=== PATIENT | female | born 1955 | race Caucasian/White ===

== ENCOUNTER 2024-12-21 06:04 | Day surgery (SDC) | payer MEDICARE, OTHER, SELFPAY ==
[2024-12-10 09:20] VITALS: BMI 36.5
[2024-12-21] VITALS (15 sets, daily range): BP systolic 119–172; BP diastolic 49–98; PULSE 67–111; RESP 12–24; TEMP 35.6–36.6; O2SAT 92–100; BMI 36.5
--- NOTE | 2024-12-21 | DI.RAD.S_ITS ---
PROCEDURE: XR HIP W PEL IF DONE LT 2V INDICATIONS: LT TOTAL HIP TECHNIQUE: AP pelvis and lateral view of the hip acquired. [facility]24, 8:48. FINDINGS: Bones: Patient is status post left hip arthroplasty, with hardware components in expected positions. The hip joint appears congruent. The visualized bony structures appear intact. Soft tissues: Overlying postoperative changes are noted. No suspicious soft tissue densities. IMPRESSION: Expected post-operative appearance of a hip arthroplasty. Dictated by: Taye Diaz M.D. on 12/21/2024 at 12:10 Approved by: Taye Diaz M.D. on 12/21/2024 at 12:11
--- NOTE | 2024-12-21 06:00 | DI.RAD.S_ITS ---
PROCEDURE: XR HIP W PEL IF DONE LT 2V INDICATIONS: VALERIE TECHNIQUE: Fluoroscopic guidance utilized for a left hip arthroplasty COMPARISON: None. FINDINGS: Fluoroscopic images submitted for a left hip arthroplasty. Please see operative note for further discussion. IMPRESSION: Fluoroscopic guidance. Dictated by: Taye Diaz M.D. on 12/21/2024 at 15:56 Approved by: Taye Diaz M.D. on 12/21/2024 at 15:56
[2024-12-21] MEDS: ACETAMINOPHEN 325 MG TABLET 975 MG PO (06:50)
[2024-12-21] MEDS: MELOXICAM 7.5 MG TABLET PO (06:51)
[2024-12-21] MEDS: LACTATED RINGERS 1,000 ML 42 ML IV ×2 (07:26→09:10)
--- NOTE | 2024-12-21 07:42 | PM.PREOP ---
Pre-operative Note Interval Note History & Physical reviewed/Exam performed by Physician: Yes Changes to H&P: No
[2024-12-21] MEDS: CEFAZOLIN 2 GM/100 ML PREMIX 100 ML IV (07:57)
[2024-12-21] MEDS: TRANEXAMIC ACID 1,000 MG VIAL 1000 MG INJ ×2 (08:11→09:08)
--- NOTE | 2024-12-21 08:49 | SUR.OPER ---
Supine on padded [place] table with bilateral legs secured in padded positioning boots and suspended in positioning spars, operative leg in traction per surgeon. Head on one pillow. Arm on non-operative side secured on padded armboard <90 degrees abduction. Arm on operative side padded and resting across chest then secured with tape over sheet. Padded perineal post in place per surgeon.
[2024-12-21] MEDS: ROPIVACAINE/EPI/CLONIDINE/KET 50 ML SYRINGE INJ (08:58)
--- NOTE | 2024-12-21 09:51 | P.OP_ITS ---
Operative Date/Time/Diagnoses Date of procedure: 12/21/24 Pre-op diagnosis: Left hip osteoarthritis Post-op diagnosis: same Procedure & Clinicians Procedure: Left total hip arthroplasty Same procedure as scheduled: Yes Surgeon: Joseph Mancera Waste Duster: Mally Tian Anesthesia Type: Spinal, Sedation and Local Operative Notes Estimated Blood Loss (mL): 350 Procedure in detail: Left Uncemented Direct Anterior Depuy Total Hip Arthroplasty: Implants: * [place] Bimentum size 55 cup? * Actis femoral stem size 5 high offset? * 28 mm +8.5 ceramic femoral head? * dual mobility liner Procedure Summary: This 69-year-old female patient has a history of a spinal fusion and bilateral hip arthritis. She intends to eventually returned for a contralateral right total hip arthroplasty. Intraoperatively today she had a very large pannus which I utilized an obstetric pannus retractor to move out of overlying the surgical field. Because of her spinal fusion I used a dual mobility articulation. I used a mono block cup to maximize the head size and avoid the use of a modular liner which could result in metal ion release. She had very friable fat tissue and in anticipation that her bone quality would likewise not be robust I performed a conjoined tendon release to elevate her femur to minimize the risk of fracture during broaching. I initially had planned to use a standard offset and a +5 head and ended up using a high offset with a +8.5 head. I was unable to dislocate the hip with maximum external rotation or a 45 degree drop test after implantation of definitive components Procedure in Detail: This patient was seen preoperatively and evaluated for hip pain which was refractory to numerous nonoperative treatment modalities. Their hip pain correlated with radiographic changes demonstrating significant degeneration in the hip joint. The risks and benefits of continued nonoperative management versus operative management were discussed at length and all of the patient?s questions were answered. Additional educational materials providing further details beyond our discussion in clinic were provided via a publicly available patient education video which included the incidence of medical complications associated with total hip arthroplasty, reasons for revision following total hip arthroplasty, and patient satisfaction rates following total hip arthroplasty. That video can be accessed at [email or web address] . With this understanding of the risks inherent to the procedure, the patient elected to move forward with operative management. Following preoperative optimization, the patient was scheduled for surgery. The patient was met in the preoperative holding area the day of the procedure and all questions were answered. The patient?s nares were swabbed with betadine in order to decolonize them from MRSA. Informed consent was signed and the left limb was marked with indelible ink.? The patient was brought back to the operating room where anesthesia was induced. The patient was transferred to the [place] table and all bony prominences were padded. The operative site was prepped and draped in the usual sterile fashion. Prior to incision, tranexamic acid and cefazolin were administered. Operative templating images were displayed demonstrating the anticipated implant sizes and correct operative extremity. A timeout procedure was performed verifying the patient?s identity, medical comorbidities, allergies, relevant medications, anesthesia type and the surgical plan. All present were in agreement. The assistance of a physician assistant professor of radiology was required for positioning, room setup, soft tissue retraction and wound closure. Without this assistance, the procedure would have been significantly more challenging and time consuming.?? A direct anterior approach to the hip was utilized. This was performed with a longitudinal incision through a Heuter interval. The incision was planned 2 cm distal and 2 cm lateral to the ASIS extending towards the lateral patella, in line with the muscle body of the TFL. Following incision, the subcutaneous tissue was dissected while taking care to avoid injury to the lateral femoral cutaneous nerve. The fascia overlying the TFL was identified by dissecting off the overlying fat and identifying perforating vessels to the TFL. The TFL fascia was incised and dissected away from the medial border of the TFL. A cobra retractor was placed over the superior femoral neck between the abductors and the hip capsule and used to reflect the TFL laterally. A Pinnacle self-retainer was then placed in the distal aspect of the wound between the TFL and the rectus femoris. This was tensioned to open up the direct anterior interval and the lateral circumflex vessels were identified and coagulated using electrocautery. The floor of the TFL fascia was incised, exposing the pericapsular fat overlying the hip capsule. A second cobra retractor was placed on the inferior femoral neck. A double-bent soft tissue retractor was placed on the anterior wall of the acetabulum and used to tension the reflected head of rectus femoris, which was then released in order to limit soft tissue tension. A capsulotomy was made in the midline of the anterior hip capsule in line with the femoral neck ending at the vastus tubercle. The double-bent retractor was removed in order to limit the amount of time that a soft tissue retractor remained on the anterior wall and protect the femoral nerve. Tag stitches were placed in the superior and inferior leaflets of the hip capsule. An Vlad soft tissue retractor was introduced over the tag stitches and tensioned in the interval between the rectus femoris and the TFL in order to retract and protect those muscles. The cobra retractors were replaced intracapsularly, with one over the superior neck in the pocket created by the base of the greater trochanter and the other on the femoral head. The capsulotomy was extended laterally to the base of the greater trochanter and medially to the lesser trochanter. This required externally rotating the hip. Once the lesser trochanter had been identified, a neck cut was planned according to measurements from preoperative templating. A ruler was cut at the length measured between the superior aspect of the lesser trochanter and the collar of the prosthesis. This line was extended towards the inferior aspect of the lateral cobra retractor to plan a cut which would leave minimal residual femoral neck laterally. The neck was cut at 60 degrees of external rotation along that line. A second cut was performed to remove a large napkin ring and facilitate head extraction. The napkin ring cut and femoral head were removed.?? A broad anterior wall retractor was placed between the labrum and the anterior capsule so that the anterior capsule would prevent capturing and pinching the femoral nerve anteriorly. An additional retractor was placed on the posterior wall. External rotation and traction were applied through the [place] table so that the cut surface of the femoral neck would not restrict access to the acetabulum. The labrum was excised sharply and the pulvinar was excised with electrocautery to limit bleeding from branches of the obturator artery. Acetabular reamers were selected based on preoperative templating and measurements of the excised femoral head. These were introduced into the acetabulum. Fluoroscopy was utilized to replicate a standing AP pelvis radiograph by centering over the pelvis, rotating until there was appropriate symmetry between the obturator foramen, and introducing caudal tilt to match the position of the pubic symphysis relative to the sacrococcygeal junction according to the patient?s anatomy. Fluoroscopy was utilized to ensure appropriate reaming depth. Once satisfied with the reaming depth corresponding to the preoperative template and the pinch fit between the columns, an appropriate sized acetabular cup was selected which would provide 1 mm of press-fit. This cup was introduced and manipulated until appropriate abduction and anteversion angles were obtained with careful attention to appropriate abduction and anteversion angles as evaluated by the position of the cup relative to the anterior and posterior junior of the acetabulum and the AP fluoroscopy which recreated the patient?s standing radiograph. The cup was impacted into place. Peripheral osteophytes were removed. The acetabular liner was then placed with care to ensure locking of the locking mechanism.? Attention was then turned to the femur. All retractors were removed, traction was released, a retractor was placed in the interval between the hip capsule and the gluteus minimus, and the hip was externally rotated to 90 degrees. Traction was applied through the [place] table to tension the lateral capsule and this was released using electrocautery. Traction was released and a [place] hook was placed posteriorly around the proximal femur at the level of the vastus ridge. The table height was lowered in order to restrict the tension on the anterior structures during hip hyperextension to limit the risk of femoral nerve palsy. With traction off and the hip at 90 degrees of external rotation, the hip was hyperextended and adducted while manually elevating the femur away from the acetabulum with the [place] hook to ensure it would not be caught behind the greater trochanter. An asymmetric retractor was placed over the calcar and a broad double-pronged retractor was placed over the greater trochanter. The tag stitch capturing the lateral leaflet of the capsule was moved to the medial side, leaving the conjoined and piriformis tendons isolated in the face of the greater trochanter. The hip was externally rotated and elevated. A release of the conjoined tendon was utilized in order to obtain adequate exposure for broaching. The canal was opened with an opening broach and a rasp was used to remove cancellous bone. A rongeur was used to remove the residual lateral bone at the base of the greater trochanter to avoid placing the stem in varus. The femur was then broached to the appropriate sized stem yielding good rotational fit and fill of the canal as well as appropriate version of the stem trial. Neck and head trials were placed, all retractors were removed and the hip was returned to neutral abduction and extension. I then reduced the hip. Initial trialing was performed with a size 5 broach, a standard offset neck and a +5 head. I initially manually externally rotated the hip and found that it immediately dislocated. I therefore upsized to a +8.5 head. This resolved the instability. I then locked the hip in 45 degrees of external rotation and dropped it to the floor with traction off which demonstrated no instability. An AP pelvis fluoroscopic image matching the preoperative standing radiograph with both lesser trochanters visible and both hips in 40 degrees of external rotation demonstrated appropriate leg lengths but appeared to have diminished offset as compared to the other side. AP and lateral hip fluoroscopic images were obtained to evaluate the broach size which demonstrated appropriate canal fill. The hip was dislocated and I returned to the broaching position. Based on my evaluation during initial trialing I planned to transitioned to a high offset stem. I did not repeat the trialing process as it had been stable with a standard offset stem. I therefore returned to the broaching position. The definitive stem was placed and the trunnion was cleaned and dried. I placed a ceramic head onto the trunnion and impacted it into place on the Minor taper.?? All retractors were removed and the hip was reduced. A dilute mixture of betadine and peroxide was used to bathe the soft tissues during final fluoroscopic assessment. Appropriate component positioning was confirmed on an AP pelvis radiograph with the operative and nonoperative legs in 40 degrees of external rotation, evaluating leg length and offset. Appropriate stem fill was evaluated on AP and lateral hip radiographs. No fractures were identified on these radiographs. There was no hip instability with maximum (115?) external rotation as well as a 45 degree drop test. The hip was copiously irrigated with pulse lavage. The capsule was closed with absorbable interrupted suture. The TFL fascia was closed with barbed suture while carefully protecting the lateral femoral cutaneous nerve from entrapment. A mixture of Ropivacaine, Epinephrine, Clonidine and Toradol was infiltrated th roughout the soft tissues. The skin was closed with 2-0 and 3-0 sutures. Surgical glue was applied and a soft dressing was placed.??The sponge, instrument and needle counts were reported as being correct at the end of the case.??No obvious complications occurred. The patient was transferred from the [place] table back to a stretcher. The patient emerged from anesthesia without difficulty and was taken to the PACU in a stable condition.? Plan for aftercare: * I will utilize anterior hip precautions for her as she has a higher risk for dislocation because of her lumbar fusion * Weightbearing as tolerated * Aspirin 81 twice per day for DVT prophylaxis * Anticipate discharge home today or tomorrow * Patient uses marijuana daily. I have ordered respiratory therapy as well as Marinol during her admission. After discharge home have counseled her to utilize smokeless formulations of marijuana * Multimodal pain regimen with no IV opioids ordered * Apply ice machine to operative hip. Ensure that sufficient ice is in the chamber for the pad to remain cold * Follow up at [facility] in [facility] weeks * Detailed postoperative instructions available at [email or web address]
[2024-12-21] MEDS: ONDANSETRON 4 MG/2 ML INJ IV (10:28)
[2024-12-21] MEDS: METOCLOPRAMIDE 10 MG/2 ML INJ IV (10:44)
[2024-12-21] MEDS: hydrOXYzine 50 MG/ML INJ 25 MG IM (10:44)
[2024-12-21] MEDS: ACETAMINOPHEN 325 MG TABLET 650 MG PO (11:43)
[2024-12-21] MEDS: droNABinol 2.5 MG CAPSULE PO ×2 (11:51→15:17)
[2024-12-21] MEDS: OXYCODONE IR 10 MG TABLET PO ×2 (11:51→15:15)
[2024-12-21] MEDS: LACTATED RINGERS 1,000 ML 100 ML IV (11:53)
--- NOTE | 2024-12-21 13:52 | PT.IIE ---
Current Diagnoses Unilateral primary osteoarthritis, left hip (12/21/24) Surgery Performed Operation Date: 12/21/24 07:45 Actual Procedures p Total Hip Arthroplasty/Anterior Approach(Left) - Joseph Mancera MD Surgical History (Last Updated 12/10/24 @ 10:19 by Hue George, RN) History of carpal tunnel surgery of left wrist History of carpal tunnel surgery of right wrist History of hysterectomy History of lumbar spinal fusion (2011) History of total left knee replacement History of total right knee replacement Hx of removal of cyst Medical History (Last Updated 12/10/24 @ 10:37 by Hue George RN) Anesthesia complication Anxiety Asthma BCC (basal cell carcinoma) Diabetes type 2 GERD (gastroesophageal reflux disease) (2003) Glaucoma HLD (hyperlipidemia) HTN (hypertension) RAMONA on CPAP Osteoarthritis Pulmonary embolism (2011) Pure red blood cell aplasia Seasonal allergies Statin intolerance Physical Therapy Inpatient Evaluation/Re-Eval M1 PT/OT-IP Prior Functional Status Start: 12/21/24 14:20 Freq: NEEDED Status: Active Protocol: Document 12/21/24 13:52 AB (Rec: 12/21/24 14:35 AB [id number]) Medical Review Prior Functional Status Medical History Reviewed Yes Communication able to make needs known Mobility and Gait pt stated that she was modified independent with all mobilities and ambulation using a walking stick Social History Household Members none Living Arrangements Apartment/Condo Number of Floors (Floors) One Floor Number of Stairs To Enter/Railing? no steps to enter Home Environment Standard Height Toilet,Tub/ Shower Home Equipment Front Wheel Walker,Straight Cane,Shower Seat without Backrest,Hand Held Shower,Grab Bars Near Toilet,Grab Bars In Shower Additional Social History Comment sister will be staying to assist pt as long as needed pt has a walking stick and SPC M2 PT-IP Current Condition Start: 12/21/24 14:20 Freq: NEEDED Status: Active Protocol: Document 12/21/24 13:52 AB (Rec: 12/21/24 14:35 AB [id number]) Physical Therapy Current Condition Current Condition Evaluation Date 12/21/24 Treatment Diagnosis s/p L VALERIE anterior; difficulty in walking Onset Date 12/21/24 M3 PT-IP Subjective Start: 12/21/24 14:20 Freq: NEEDED Status: Active Protocol: Document 12/21/24 13:52 AB (Rec: 12/21/24 14:35 [id number]) Subjective Physical Therapy Visit Type Type Initial Evaluation Visit Start Time 13:52 Visit Stop Time 14:20 Notes checked on pt x 2. pt initially stated that she needs 15 min before she gets up. Number of CREDENTIALER Visits 0 Therapy Pain Assessment Pain When Pain Assessed At Rest Pain Present Pain Present Pain Reported Location Left Hip Intensity 4 Scale Used 6/10 with movement Pain Management Techniques Apply Cold,Elevation, Modification of Treatment,Re- positioning,Timing of Activity with Medications M4 PT-IP Mobility and Gait Start: 12/21/24 14:20 Freq: NEEDED Status: Active Protocol: Document 12/21/24 13:52 AB (Rec: 12/21/24 14:35 [id number]) PT-Bed Mobility Assessment Supine to Sit Supine to Sit Standby Assistance,Head of Bed Elevated,Bedrails Sit to Supine Sit to Supine Standby Assistance,Head of Bed Elevated,Bedrails PT-Transfer Assessment Sit to and From Stand Sit to and from Stand Standby Assistance,1 Person Assistance,Use of Upper Extremities Equipment Transfer Assistive Device Gait Belt,Front Wheeled Walker Orthotic/Prosthetic Devices or Brace: No Comments Mobility Comments pt walking back to EOB with nurse and NAC. c/o nausea. BP: 133/71. pt's sister in room with pt. pt agreed to do PT. obtained PLOF and home setup. educated pt on hip precautions and safety. pt with h/o lumbar sx. post-op folder provided and reviewed contents. pt requested to lay back and completed SBA. pt used RLE to assist LLE elevation to bed. pt got up again SBA supine to sit. completed sit to stand sBA and ambulated in room using fWW ~ 25 ft SBA. c/o dizziness and sweaty. pt sat on EOB. BP: 138/71. pt completed sit to supine SBA. positioned pt in bed. set up lunch for pt. call light and table placed within reach. educated on how to do car transfers. pt and sister without further concerns. Gait Assessment Gait Gait Assistance Required: Standby Assistance Distance (Feet) 25 Able to Maintain Weight Bearing Status Yes During Gait Assistive Devices Assistive Device Gait Belt,Front Wheeled Walker Orthotic/Prosthetic Devices or Brace: No Gait Deviations General Gait Pattern Decreased Stride Length, Decreased Feet Clearance Factors Limiting Gait Function Factors Limiting Gait Function Decreased Activity Tolerance, Decreased Strength,Difficulty Following Directions,Limited Range of Motion,Pain,Poor Balance,Poor Safety Awareness PT-Balance Assessment Sitting Balance and Reactions Static Sitting Balance Ability Normal Dynamic Sitting Balance Ability Good Standing Balance and Reactions Static Standing Balance Ability Good Dynamic Standing Balance Ability Fair Device Used FWW M5 PT-IP Objective Assessments Start: 12/21/24 14:20 Freq: NEEDED Status: Active Protocol: Document 12/21/24 13:52 AB (Rec: 12/21/24 14:35 [id number]) Orientation Orientation/Cognition Level of Alertness Alert Orientation Name,Place,Situation Language Function Ability No Deficits Noted Safety Awareness Decreased Safety Awareness Memory Description No Deficits Noted Gross Range of Motion Lower Extremity ROM Assessment Within Functional Limits Strength Lower Extremity Strength Assessment Left Impaired Hip 3+/5 Knee 4-/5 Coordination Assessment Gross Coordination Gross Coordination WNL Sensation Assessment Sensation Gross Sensation WNL Muscle Tone Muscle Tone WNL Yes M6 PT-IP Treatment Start: 12/21/24 14:20 Freq: NEEDED Status: Active Protocol: Document 12/21/24 13:52 AB (Rec: 12/21/24 14:35 AB [id number]) Physical Therapy Treatment Education Education Provided Precautions,Weight Bearing Status,Post-Op Packet,Safety M7 PT-IP Assessment and Plan Start: 12/21/24 14:20 Freq: NEEDED Status: Active Protocol: Document 12/21/24 13:52 AB (Rec: 12/21/24 14:35 [id number]) PT Summary Assessment and Plan Potential Rehabilitation Potential Fair Status of Condition at Evaluation Evolving Summary Impairments Pain,ROM,Strength,Balance,Bed Mobility,Transfers,Gait, Activity Tolerance Assessment Summary pt is a 69 y/o F s/o L VALERIE anterior approach POD 0. pt is WBAT on LLE. pt requiring SBA with mobility but with c/o dizziness, nausea and sweaty after ambulation. BP stable. pt plans to go home and her sister to assist her. pt has outpt PT setup. Goals Bed Mobility Goal Independent Transfer Goal Independent,Front Wheeled Walker Gait Goal Independent,Front Wheel Walker Gait Distance 250 Days to Meet Goals 3 Frequency of Treatment Frequency Of Treatment Twice a Day Treatment Plan Physical Therapy Treatment Plan Bed Mobility Training,Transfer Training,Gait Training, Therapeutic Exercise,Balance Retraining,Post Op Education, Discharge Planning,Hot or Cold Pack,Neuromuscular Re-ed, Coordination Retraining,Manual Therapy Precautions Anterior Hip Precautions No Hip Extension,No Hip External Rotation Weight Bearing Status Weight Bearing Status Weight Bear as Tolerated Allowed Weight Bearing Amount (enter % LLE WBAT or #) (%) Recommendations To Nursing Amount of Assist Needed 1 Person Assist Discharge Recommendations PT Discharge Recommendations Home with Assistance, Outpatient PT Transportation Needs at Discharge Private Vehicle
--- NOTE | 2024-12-21 14:27 | PC.NURSE ---
Addendum entered by Arlene Ulloa R.N. 12/21/24 15:44: MD Mancera at bedside this afternoon evaluating patient sitting at the edge of bed. She is cleared for discharge home today with her sister Roes. She acknowledges understanding of medications, s/sx of infection, site care, activity limitations and follow up appointment with Ortho in x 2 weeks. She is escorted via w/ch to private vehicle with her sister and all of her belongings at approximately 1540 today. Original Note: Patient arrived from PACU at 11:15 a.m. She is A&OX4, VSS, afebrile on RA. She reports pain at 6/10 to L hip. She tosses and turns in the bed, can't get comfortable and initally complains of nausea. She is medicated with marinol, tylenol and prn oxycodone with good effect. She is able to tolerate a late lunch this afternoon, and work with PT/OT. She is able to void in bathroom with PT.
--- NOTE | 2024-12-21 14:49 | PM.PN.1 ---
Subjective Subjective Interval history: I came up to [facility] hospital room to check on her. Per report from physical therapy she did very well mobilizing with them and required minimal assistance with ambulation. She is eager to go home this evening and says she feels safe ambulating with a walker. Her dressing is clean dry and intact with no strike through. She has intact function of her sciatic and femoral nerve. I have reviewed her postoperative radiographs which are appropriate. I will send her home with prescriptions for cefadroxil 500 mg twice per day for periprosthetic joint infection prophylaxis as well as for Marinol as she is a habitual marijuana user and I have requested that she abstain from any formulations of marijuana which involve smoke while her wound is healing. We will attempt to utilize the Marinol for abstinence from smoke formulations of marijuana. We will discharge her home today Exam Vital Signs (past 8 hours): - 12/21/24 07:16 12/21/24 10:01 12/21/24 10:06 Temperature 97.6 F 97.8 F Pulse Rate 79 86 83 Respiratory Rate 16 20 24 Blood Pressure 147/89 H 131/75 146/78 H Pulse Oximetry 100 100 99 Oxygen Delivery Method Room Air Simple Mask Simple Mask Oxygen Flow Rate 6 6 12/21/24 10:11 12/21/24 10:16 12/21/24 10:21 Temperature Pulse Rate 88 81 91 H Respiratory Rate 18 18 12 Blood Pressure 143/84 H 136/77 138/89 Pulse Oximetry 100 100 99 Oxygen Delivery Method Simple Mask Simple Mask Room Air Oxygen Flow Rate 6 6 12/21/24 10:26 12/21/24 10:32 12/21/24 10:37 Temperature 97.3 F L Pulse Rate 111 H 88 79 Respiratory Rate 12 18 14 Blood Pressure 159/98 H 172/90 H 155/94 H Pulse Oximetry 92 96 98 Oxygen Delivery Method Room Air Room Air Room Air Oxygen Flow Rate 12/21/24 10:51 12/21/24 10:59 12/21/24 11:19 Temperature 96.0 F L Pulse Rate 79 75 70 Respiratory Rate 18 13 14 Blood Pressure 144/78 H 143/78 H 119/49 L Pulse Oximetry 99 96 97 Oxygen Delivery Method Room Air Room Air Oxygen Flow Rate 0 12/21/24 11:32 12/21/24 11:37 12/21/24 11:50 Temperature 96.3 F L Pulse Rate 80 Respiratory Rate 14 Blood Pressure 136/71 Pulse Oximetry 95 Oxygen Delivery Method Room Air CPAP CPAP Oxygen Flow Rate 0 12/21/24 12:20 12/21/24 13:20 Temperature 97.4 F L 97.0 F L Pulse Rate 67 93 H Respiratory Rate 16 16 Blood Pressure 128/65 134/61 Pulse Oximetry 97 94 Oxygen Delivery Method Oxygen Flow Rate 0 0 Oxygen Delivery Method CPAP Oxygen Flow Rate 0 PFSH Medical History (Updated 12/10/24 @ 10:37 by Hue George RN) Pure red blood cell aplasia Anesthesia complication Anxiety BCC (basal cell carcinoma) Pulmonary embolism (2011) Osteoarthritis GERD (gastroesophageal reflux disease) (2003) HTN (hypertension) RAMONA on CPAP Seasonal allergies Glaucoma Asthma Statin intolerance Diabetes type 2 HLD (hyperlipidemia) Surgical History (Updated 12/10/24 @ 10:19 by Hue George, CADE) Hx of removal of cyst History of carpal tunnel surgery of left wrist History of carpal tunnel surgery of right wrist History of total left knee replacement History of total right knee replacement History of lumbar spinal fusion (2011) History of hysterectomy Social History household members: none Smoking Status: Current every day smoker alcohol intake: current Assessment & Plan Time-Based Coding :: [TOTAL MINUTES] spent with patient and on the chart (including review of chart, obtaining history, exam, reviewing outside data, placing orders, documenting exam and treatment plan, and counseling patient) on [DATE]. Quality VTE Deep Vein Thrombosis/Pulmonary Embolism Present on Admission: Yes
== END 2024-12-21 15:40 | disposition home or self-care (01) ==
LOC: OR 06:07 → AC 06:09
PROVIDERS: Family Provider Orthopaedic Surgery; PCP Family Medicine; Referring Provider Orthopaedic Surgery Adult Reconstructive Orthopaedic Surgery; Visit Provider Orthopaedic Surgery Adult Reconstructive Orthopaedic Surgery
PROC: (CPT 27130; principal; 2024-12-21 07:45)
DX: M16.12 Unilateral primary osteoarthritis, left hip (principal); E78.5 Hyperlipidemia, unspecified; G47.33 Obstructive sleep apnea (adult) (pediatric); E11.9 Type 2 diabetes mellitus without complications; Z79.82 Long term (current) use of aspirin; Z96.653 Presence of artificial knee joint, bilateral; M25.752 Osteophyte, left hip
CPT/HCPCS: 27130; 73502; 76000; 82962; 97162; 97530; C1776; C1713; J0690; J1171; J2250; J2405; J2704; J2765; J3010; J3410